=== PATIENT | male | born 1975 | race Caucasian/White ===

== ENCOUNTER 2025-02-21 07:30 | Outpatient (RCR) | payer BC, SELFPAY ==
[2025-02-21 07:50] VITALS: BP 145/62
[2025-02-21] MEDS: CORTROSYN 1 MG IV (08:04)
[2025-02-21 10:03] LABS: ACTH Stim Cortisol 0 Min 7.7 ug/dl
[2025-02-21 10:09] LABS: ACTH Stim Cortisol 30 Min 16.0 ug/dl
[2025-02-21 10:48] LABS: ACTH Stim Cortisol 60 Min 18.9 ug/dl
== END 2025-02-22 09:22 | disposition home or self-care (01) ==
LOC: OID 07:30
PROVIDERS: ATTENDING PHYSICIAN Nurse Practitioner Family; FAMILY PHYSICIAN Registered Nurse
DX: E27.1 Primary adrenocortical insufficiency (principal)
CPT/HCPCS: 82533; 96374